=== PATIENT | female | born 1995 | race Caucasian/White ===

== ENCOUNTER 2020-07-24 23:33 | Emergency (ER) | payer MEDICAID, SELFPAY ==
[2020-07-24 23:41] VITALS: BP 98/79; PULSE 105; RESP 16; TEMP 36.8; O2SAT 100; BMI 26.5
--- NOTE | 2020-07-24 23:59 | ED.FEMALEGU ---
HPI - Female Genitourinary General Chief complaint: Urogenital-Female Stated complaint: ?UTI Time Seen by Provider: 07/24/20 23:59 Source: patient Mode of arrival: ambulatory Limitations: no limitations History of Present Illness HPI Narrative: 25-year-old female came in for evaluation of dysuria and suprapubic pain. Symptoms started since yesterday, no fever or chills, no upper abdominal pain or flank pain, no nausea or vomiting. Pain is burning sensation in the vaginal/suprapubic area mostly with urination, no vaginal discharge, patient is sexually active with 1 partner with low risk for STD. Related Data Previous Rx's Medication Instructions Recorded levofloxacin 750 mg PO DAILY #10 tab 07/25/20 phenazopyridine [Pyridium] 200 mg PO TID #6 tab 07/25/20 Allergies Allergy/AdvReac Type Severity Reaction Status Date / Time promethazine AdvReac Unknown Palpitation Verified 07/24/20 23:39 s From PHENERGAN Allergy Unknown ANXIETY Uncoded 11/12/19 16:58 Review of Systems Review of Systems: All other systems are reviewed and are negative Constitutional: Reports as per HPI and Reports no additional constitutional complaints Eyes: Reports as per HPI and Reports no additional eye complaints Reports system reviewed and no additional complaints, except as documented Cardiovascular: Reports as per HPI and Reports no additional cardiovascular complaints Respiratory: Reports as per HPI and Reports no additional respiratory complaints Gastrointestinal: Reports as per HPI and Reports no additional gastrointestinal complaints Genitourinary: Reports no additional female genitourinary complaints Musculoskeletal: Reports no additional musculoskeletal complaints Skin/Breast: Reports system reviewed and no additional complaints, except as docu Psychiatric: Reports no additional psychiatric complaints Endocrine: Reports no additional endocrine complaints Hematologic/Lymphatic: Reports no additional hematologic/lymphatic complaints Allergic/Immunologic: Reports no additional allergic/immunologic complaints Reports system reviewed and no additional complaints, except as documented and Reports Abnormal speech present [facility] Past Medical History Medical History Asthma Social History Social History Alcohol intake: never Patient Tobacco Use Status: Never used Tobacco Use of substances other than those prescribed or required for medical reasons: No Advance Directives: No Patient : No Physical Exam Vital Signs: Vital Signs: Last Vital Signs Temp 98.2 F 05/30/21 23:41 Pulse 105 H 07/24/20 23:41 Resp 16 07/24/20 23:41 BP 98/79 07/24/20 23:41 Pulse Ox 100 07/24/20 23:41 Body Mass Index 26.5 Vital signs have been reviewed as appeared to be correct. Blood pressure normal. Heart rate elevated. Respiration rate normal. Temperature normal. Oxygen saturation normal. Appearance: Alert. Oriented X3. No acute distress. Head: Normal external exam. Normocephalic. Atraumatic. No Heard signs noted. No raccoon eyes noted Eyes: PERRLA. EOMI. Conjunctiva and sclera normal. Eyelids normal. ENT: TM's Normal. Pharynx normal. Uvula midline. Moist mucous membranes. No trismus noted. No drooling noted. No muffled voice noted. Neck: Normal inspection. Neck supple. FROM. No adenopathy. Thyroid Normal. No meningeal signs. No neck mass noted. CVS: Normal heart rate and rhythm. Heart sound normal. No murmurs noted. Pulses normal throughout. Respiratory: No respiratory distress. Painless inspiration. Breath sounds normal. No wheezes/rales/rhonchi noted. Chest nontender. No accessory muscle usage noted or decreased air movement noted. Abdomen: Soft, mild suprapubic tenderness, no rebound tenderness, no guarding.. Bowel sounds normal in all 4 quadrants. No distention noted. No organomegaly noted. No visible injury noted. Pelvic exam: Physical exam was done in the presence of female integration architect RN,Irene Pinto, normal external genitalia inspection, no rash, no lesions, no discharge, no discharge, no adnexal mass or tenderness. Mild CMT. Back: No CVA tenderness. Full range of motion noted. Skin: Skin warm and dry. Normal skin color. Normal skin turgor. No rashes/lesions/lacerations noted. Extremities: No lower extremity edema. Extremities exhibit normal range of motion. Extremities nontender. Neuro: Oriented X 3. No motor deficit. No sensory deficit. Reflexes normal. Course Course Course Narrative: Assessment and plan. 25-year-old female came in with suprapubic pain and dysuria, physical exam and UA finding are consistent with acute cystitis. Start the patient on Levaquin/Pyridium/encouraged to drink plenty of fluids. As discussed with the patient to follow-up with PCP if symptoms still persist patient may need to be evaluated by urologist in the future. MDM - Female Genitourinary Lab Data Attestation: I reviewed the patient's lab results. Labs: Lab Results 07/24/20 07/24/20 Range/Units 23:46 23:49 Urine Color PINK Urine Appearance HAZY Urine pH 6.0 (5.0-8.0) Ur Specific [place] <= 1.005 (1.005-1.025) Urine Protein 1+ H (NEG-TRACE) MG/DL Urine Glucose (UA) NEG (NEG) MG/DL Urine Ketones NEG (NEG) MG/DL Urine Blood 3+ H (NEG) Urine Nitrite NEG (NEG) Ur Leukocyte Esterase 2+ H (NEG) Urine RBC 15-29 H (0) /HPF Urine WBC 10-14 H (0-4) /HPF Ur Squamous Epith Cells 1+ /LPF Urine Bacteria 1+ /LPF Urine Mucus 1+ /LPF Urine Test NEGATIVE (NEGATIVE) Discharge Plan Discharge Clinical Impression: Urinary tract infection Qualifiers: Urinary tract infection type: acute cystitis Hematuria presence: with hematuria Qualified Code(s): N30.01 - Acute cystitis with hematuria Patient Disposition: Home, Self-Care Instructions: Urinary Tract Infection in Women (ED) Additional Instructions: Drink plenty of fluid, follow-up with your PCP, if symptoms persist see a urologist as an outpatient. Prescriptions: New levofloxacin 750 mg tablet 750 mg PO DAILY Qty: 10 RF: 0 phenazopyridine [Pyridium] 200 mg tablet 200 mg PO TID Qty: 6 RF: 0 Referrals: Warren Patel MD [Physician] - 2 days
[2020-07-25 00:04] LABS: Glucose Urine UA NEG (NEG); Leukocyte Esterase Urine 2+ (NEG); Nitrite Urine NEG (NEG); Specific Gravity - Urine <= 1.005 (1.005-1.025); UACC Culture Trigger YES; Urine Blood 3+ (NEG); Urine Ketones NEG (NEG); Urine Protein 1+ MG/DL (NEG-TRACE)
[2020-07-25 00:07] LABS: Appearance Urine HAZY; Color Urine PINK
[2020-07-25 00:14] LABS: Bacteria Urine 1+ /LPF; Mucus Urine 1+ /LPF; Squamous Epithelial Cell Urine 1+ /LPF; UACC CULT YES
[2020-07-25 00:14] LABS: UPreg QC Valid YES; Urine Pregnancy NEGATIVE (NEGATIVE)
[2020-07-25] MEDS: Ibuprofen 600 MG TABLET PO (00:56)
[2020-07-25] MEDS: Phenazopyridine HCL 200 MG TABLET PO (00:56)
[2020-07-25] MEDS: levoFLOXacin 750 MG TABLET PO (00:56)
== END 2020-07-25 02:04 | disposition home or self-care (01) ==
PROVIDERS: Emergency Provider Emergency Medicine
DX: N30.01 Acute cystitis with hematuria (principal); J45.909 Unspecified asthma, uncomplicated
CPT/HCPCS: 81001; 81025; 87086; 99283; 99284

== ENCOUNTER 2020-07-25 09:32 | Emergency (ER) | payer MEDICAID, SELFPAY ==
--- NOTE | ~2020-07-25 | XR_ITS ---
EXAMINATION: XR CHEST CLINICAL INFORMATION: Cough. COMPARISON: None TECHNIQUE: Frontal view of the chest was obtained. FINDINGS: No significant abnormality is noted involving the heart, lungs, mediastinum, bony thorax or soft tissues. XR/XR chest 1V IMPRESSION: Unremarkable chest examination.
[2020-07-25 09:44] VITALS: BP 115/72; PULSE 106; RESP 17; TEMP 36.4; O2SAT 100; BMI 26.5
--- NOTE | 2020-07-25 10:56 | ED.GENADULT ---
HPI - General Adult General Chief complaint: General Medical Stated complaint: VOMITING Time Seen by Provider: 07/25/20 10:54 Source: patient Mode of arrival: ambulatory Limitations: no limitations History of Present Illness HPI narrative: Patient presents to the ED for coughing, headache, and body aches. Patient was recently treated for UTI yesterday. Patient states symptoms started after she was discharged. Patient states she has been around her friends who have been positive for COVID. Related Data Previous Rx's Medication Instructions Recorded levofloxacin 750 mg PO DAILY #10 tab 07/25/20 phenazopyridine [Pyridium] 200 mg PO TID #6 tab 07/25/20 Allergies Allergy/AdvReac Type Severity Reaction Status Date / Time promethazine AdvReac Unknown Palpitation Verified 07/24/20 23:39 s From PHENERGAN Allergy Unknown ANXIETY Uncoded 11/12/19 16:58 Review of Systems Review of Systems: Yes all other systems are reviewed and are negative Constitutional: Constitutional: Reports as per HPI, Reports no additional constitutional complaints, Reports body ache(s), Reports chills, Reports fatigue and Reports headache(s) Eyes: Eyes: Reports as per HPI and Reports no additional eye complaints ENT: Reports headache(s) Cardiovascular: Cardiovascular: Reports as per HPI and Reports no additional cardiovascular complaints Respiratory: Respiratory: Reports as per HPI and Reports no additional respiratory complaints Gastrointestinal: Gastrointestinal: Reports as per HPI and Reports no additional gastrointestinal complaints Genitourinary: Genitourinary: Reports no additional female genitourinary complaints and Reports as per HPI Musculoskeletal: Musculoskeletal: Reports no additional musculoskeletal complaints and Reports as per HPI Neurologic: Reports system reviewed and no additional complaints, except as documented, Reports as per HPI and Reports headache(s) Psychiatric: Psychiatric: Reports no additional psychiatric complaints and Reports as per HPI Endocrine: Endocrine: Reports fatigue PMF Past Medical History Medical History Asthma Social History Social History Alcohol intake: never Patient Tobacco Use Status: Never used Tobacco Advance Directives: Yes Advance Directives Information Provided: Yes Advance Directives on File: No Patient : No Physical Exam Vital Signs: Vital Signs: Last Vital Signs Temp 97.6 F 07/25/20 09:44 Pulse 106 H 07/25/20 09:44 Resp 17 07/25/20 09:44 BP 115/72 07/25/20 09:44 Pulse Ox 100 07/25/20 09:44 Body Mass Index 26.5 Const: General: cooperative, healthy appearing, comfortable, no acute distress, well developed, alert, awake and Physically active Orientation/consciousness: patient oriented x3 HENMT: Head: Yes normal to inspection, Yes No palpable skull fracture present, Yes normocephalic and Yes atraumatic Eyes: General: appearance normal, both eyes and all related structures Neck: Neck: Yes normal visual inspection, Yes full ROM, Yes no lymphadenopathy, Yes no meningeal signs, Yes trachea midline, Yes supple and No tender Chest: Chest palpation & inspection: normal inspection of the chest and normal palpation of entire chest wall Resp: Effort & Inspection: normal respiratory effort and able to speak in complete sentences Auscultation: clear to auscultation bilaterally Cardio: Jugular venous distension: no JVD Heart sounds: S1 normal heart sound present and S2 normal heart sound present GI: Inspection: Yes normal to inspection and No abdominal wall ecchymosis Palpation (GI): Soft to palpation, not firm, nontender, no guarding and not rigid : General: No CVA tenderness and Yes no CVA tenderness Back/Spine/Pelvis: Back: no CVA tenderness, No CVA tenderness and No back tenderness Skin: General skin exam: no rashes or lesions noted and elasticity normal Neuro: General: patient oriented x3, gait normal, no meningeal signs and CN's II-XI intact bilaterally Cranial nerves: Yes CN's II-XII intact bilaterally Extrem: Other: Negative for any lower extremities swelling, pitting edema,or calf tenderness General: Yes normal to inspection and Yes full ROM Psych: Appearance: grossly normal, well kempt and not disheveled Course Course Course Narrative: Will do labs, chest x-ray, COVID swab, repeat UA. Reevaluation(s) Reevaluation #1: Chest x-ray negative for pneumonia. COVID swab came back negative. Rest of labs are normal. UA no longer shows UTI. History physical exam indicate viral syndrome. Patient informed COVID swabl came back negative and because she started having symptoms yesterday and recently exposed to someone with COVID if symptoms worsen she should get retested is 7 to hours or self-quarantine. Patient informs she might be a false negative. Medical Decision Making MDM Narrative Medical decision making narrative: Viral syndrome Lab Data Result diagrams: 07/25/20 11:35 07/25/20 11:34 Labs: Lab Results 07/25/20 07/25/20 07/25/20 Range/Units 11:34 11:34 11:35 WBC 8.6 (4.8-10.8) X10*3/uL RBC 4.55 (4.20-5.50) X10*6/uL Hgb 12.5 (12.0-16.0) g/dl Hct 38.1 (37-47) % MCV 83.7 (80-98) fL MCH 27.5 (27.0-33.0) pg MCHC 32.8 (31.0-35.0) g/dl RDW 12.6 (11.0-16.0) % Plt Count 351 (160-400) X10*3/uL MPV 8.9 L (9.4-12.3) fL Immature Gran % (Auto) 0.2 (0.0-0.4) % Neut % (Auto) 76.8 H (45-73) % Lymph % (Auto) 16.3 L (20-40) % [place] % (Auto) 6.3 (2-11) % Eos % (Auto) 0.1 (0-4) % Baso % (Auto) 0.3 (0-2) % Lymph # (Auto) 1.4 (1.2-4.9) X10*3/uL [place] # (Auto) 0.5 (0.1-1.2) X10*3/uL Eos # (Auto) 0.0 (0.0-0.4) X10*3/uL Baso # (Auto) 0.0 (0.0-0.2) X10*3/uL Abs Immat Gran (auto) 0.02 (0.00-0.03) X10*3/uL Absolute Neuts (auto) 6.6 (2.0-8.3) X10*3/uL Absolute Nucleated RBC 0.000 (0.0-0.012) X10*3/uL Nucleated RBC % (auto) 0.0 (0.0-0.2) /100WBC PT 13.0 (10.8-13.0) SEC INR 1.1 (0.9-1.1) APTT 32.8 (24.1-38.0) SEC Sodium 141 (135-145) mmol/L Potassium 3.8 (3.3-5.1) mmol/L Chloride 106 (96-108) mmol/L Carbon Dioxide 24 (22-29) mmol/L Anion Gap 15 (12-20) BUN 6 L (9-16) mg/dL Creatinine 0.66 (0.5-1.4) mg/dL Estim Creat Clear Calc 114.9 Estimated GFR > 60 Random Glucose 93 (60-115) mg/dL Calcium 9.1 (8.4-10.2) mg/dL Total Bilirubin 0.8 (0.0-1.0) mg/dL Direct Bilirubin 0.3 (0.0-0.5) mg/dL AST 14 (5-31) U/L ALT 11 (0-31) U/L Alkaline Phosphatase 74 (39-117) U/L Total Protein 7.1 (6.5-8.0) g/dL Albumin 4.2 (3.5-5.0) g/dL Lipase 12 (8-78) U/L Urine Color Urine Appearance Urine pH (5.0-8.0) Ur Specific [place] (1.005-1.025) Urine Protein (NEG-TRACE) MG/DL Urine Glucose (UA) (NEG) MG/DL Urine Ketones (NEG) MG/DL Urine Blood (NEG) Urine Nitrite (NEG) Ur Leukocyte Esterase (NEG) Urine RBC (0) /HPF Urine WBC (0-4) /HPF Ur Squamous Epith Cells /LPF Urine Bacteria /LPF Urine Test (NEGATIVE) Coronavirus (PCR) (Negative) Influenza Type A (PCR) (Negative) Influenza Type B (PCR) (Negative) RSV RNA Qual (PCR) (Negative) 07/25/20 07/25/20 07/25/20 Range/Units 11:51 11:51 11:52 WBC (4.8-10.8) X10*3/uL RBC (4.20-5.50) X10*6/uL Hgb (12.0-16.0) g/dl Hct (37-47) % MCV (80-98) fL MCH (27.0-33.0) pg MCHC (31.0-35.0) g/dl RDW (11.0-16.0) % Plt Count (160-400) X10*3/uL MPV (9.4-12.3) fL Immature Gran % (Auto) (0.0-0.4) % Neut % (Auto) (45-73) % Lymph % (Auto) (20-40) % [place] % (Auto) (2-11) % Eos % (Auto) (0-4) % Baso % (Auto) (0-2) % Lymph # (Auto) (1.2-4.9) X10*3/uL [place] # (Auto) (0.1-1.2) X10*3/uL Eos # (Auto) (0.0-0.4) X10*3/uL Baso # (Auto) (0.0-0.2) X10*3/uL Abs Immat Gran (auto) (0.00-0.03) X10*3/uL Absolute Neuts (auto) (2.0-8.3) X10*3/uL Absolute Nucleated RBC (0.0-0.012) X10*3/uL Nucleated RBC % (auto) (0.0-0.2) /100WBC PT (10.8-13.0) SEC INR (0.9-1.1) APTT (24.1-38.0) SEC Sodium (135-145) mmol/L Potassium (3.3-5.1) mmol/L Chloride (96-108) mmol/L Carbon Dioxide (22-29) mmol/L Anion Gap (12-20) BUN (9-16) mg/dL Creatinine (0.5-1.4) mg/dL Estim Creat Clear Calc Estimated GFR Random Glucose (60-115) mg/dL Calcium (8.4-10.2) mg/dL Total Bilirubin (0.0-1.0) mg/dL Direct Bilirubin (0.0-0.5) mg/dL AST (5-31) U/L ALT (0-31) U/L Alkaline Phosphatase (39-117) U/L Total Protein (6.5-8.0) g/dL Albumin (3.5-5.0) g/dL Lipase (8-78) U/L Urine Color ORANGE Urine Appearance CLEAR Urine pH 7.0 (5.0-8.0) Ur Specific [place] 1.015 (1.005-1.025) Urine Protein SEE NOTE (NEG-TRACE) MG/DL Urine Glucose (UA) SEE NOTE (NEG) MG/DL Urine Ketones NEG (NEG) MG/DL Urine Blood NEG (NEG) Urine Nitrite SEE NOTE (NEG) Ur Leukocyte Esterase SEE NOTE (NEG) Urine RBC 0-2 (0) /HPF Urine WBC 1-4 (0-4) /HPF Ur Squamous Epith Cells 3+ /LPF Urine Bacteria 1+ /LPF Urine Test NEGATIVE (NEGATIVE) Coronavirus (PCR) NEGATIVE (Negative) Influenza Type A (PCR) NEGATIVE (Negative) Influenza Type B (PCR) NEGATIVE (Negative) RSV RNA Qual (PCR) NEGATIVE (Negative) Discharge Plan Discharge Clinical Impression: Acute viral syndrome Patient Disposition: Home, Self-Care Instructions: Viral Syndrome (ED) Additional Instructions: Return to the ED for shortness of breath, coughing up blood, calf pain, swelling of lower extremities, fever, chills, crushing chest pain, abdominal pain, dysuria, hematuria, flank pain, any other concerning symptoms. Youre COVID swab came back negative. Symptoms worsen recommend self quarantine or retesting in 72 hours. Chest x-ray came back negative for pneumonia. Blood work came back normal. UA came back normal. Flu swab came back negative. Prescriptions: No Action levofloxacin 750 mg tablet 750 mg PO DAILY Qty: 10 RF: 0 phenazopyridine [Pyridium] 200 mg tablet 200 mg PO TID Qty: 6 RF: 0 Stand Alone Forms: Work/School Release Interventions: ED Discharge Assessment Last Done: 07/25/20 14:13 Discharge Date/Time: 07/25/20 14:14 Print Language: [place]
[2020-07-25 11:38] LABS: MANUAL DIFF FLAG NO
[2020-07-25 11:40] LABS: Basophils Percent Auto 0.3 % (0-2); Eosinophils Percent Auto 0.1 % (0-4); Hematocrit 38.1 % (37-47); Hemoglobin 12.5 g/dl (12.0-16.0); Imm Gran Abs Auto 0.02 X10*3/uL (0.00-0.03); Imm Gran Pct Auto 0.2 % (0.0-0.4); Lymphocytes Absolute Auto 1.4 X10*3/uL (1.2-4.9); Lymphocytes Percent Auto 16.3 % (20-40); Mean Corpuscular HGB Conc 32.8 g/dl (31.0-35.0); Mean Corpuscular Hemoglobin 27.5 pg (27.0-33.0); Mean Corpuscular Volume 83.7 fL (80-98); Mean Platelet Volume 8.9 fL (9.4-12.3); Monocytes Absolute Auto 0.5 X10*3/uL (0.1-1.2); Monocytes Percent Auto 6.3 % (2-11); Neutrophils Absolute Auto 6.6 X10*3/uL (2.0-8.3); Neutrophils Percent Auto 76.8 % (45-73); Platelet Count 351 X10*3/uL (160-400); Red Blood Count 4.55 X10*6/uL (4.20-5.50); Red Cell Distribution Width 12.6 % (11.0-16.0); White Blood Count 8.6 X10*3/uL (4.8-10.8)
[2020-07-25 11:46] LABS: INTERNATIONAL NORM RATIO 1.1 (0.9-1.1)
[2020-07-25 11:49] LABS: Partial Thromboplastin Time 32.8 SEC (24.1-38.0)
[2020-07-25 12:02] LABS: UPreg QC Valid YES; Urine Pregnancy NEGATIVE (NEGATIVE)
[2020-07-25 12:07] LABS: Specific Gravity - Urine 1.015 (1.005-1.025); Urine Blood NEG (NEG); Urine Ketones NEG (NEG)
[2020-07-25 12:08] LABS: Alanine Aminotransferase 11 U/L (0-31); Albumin Level 4.2 g/dL (3.5-5.0); Alkaline Phosphatase 74 U/L (39-117); Anion Gap 15 (12-20); Aspartate Amino Transferase 14 U/L (5-31); Bilirubin Direct 0.3 mg/dL (0.0-0.5); Bilirubin Total 0.8 mg/dL (0.0-1.0); Blood Urea Nitrogen 6 mg/dL (9-16); Calcium 9.1 mg/dL (8.4-10.2); Carbon Dioxide 24 mmol/L (22-29); Chloride 106 mmol/L (96-108); Creatinine Clr Calc Pharmacy 114.9; Estimated Glomerular Filt Rate > 60; Glucose Random 93 mg/dL (60-115); Lipase 12 U/L (8-78); Potassium 3.8 mmol/L (3.3-5.1); Sodium 141 mmol/L (135-145); Total Protein 7.1 g/dL (6.5-8.0)
[2020-07-25 12:09] LABS: Appearance Urine CLEAR; Color Urine ORANGE
[2020-07-25 12:11] LABS: Bacteria Urine 1+ /LPF; RBC Urine 0-2 /HPF (0); Squamous Epithelial Cell Urine 3+ /LPF
[2020-07-25 12:53] LABS: Influenza A PCR NEGATIVE (Negative); Influenza B PCR NEGATIVE (Negative); Resp Syncy Virus RNA Qual PCR NEGATIVE (Negative); SARS COV2 PCR INHOUSE NEGATIVE (Negative)
== END 2020-07-25 14:14 | disposition home or self-care (01) ==
PROVIDERS: Physician Assistant; Emergency Provider Emergency Medicine Emergency Medical Services; PCP Pediatrics
DX: B34.9 Viral infection, unspecified (principal); Z20.822 Contact with and (suspected) exposure to COVID-19; R51.9 Headache, unspecified
CPT/HCPCS: 0241U; 36415; 71045; 80053; 80076; 81001; 81003; 81025; 82248; 83690; 85025; 85610; 85730; 87086; 99283

== ENCOUNTER 2020-11-03 12:19 | Outpatient (REF) | payer MEDICAID, SELFPAY ==
--- NOTE | ~2020-11-03 | XR_ITS ---
EXAMINATION: XR CHEST CLINICAL INFORMATION: Asthma. Rule out pneumonia. COMPARISON: Previous chest x-ray most recent June 2020 TECHNIQUE: 2 views of the chest were obtained. FINDINGS: No significant abnormality is noted involving the heart, lungs, mediastinum, bony thorax or soft tissues. XR/XR chest 2V IMPRESSION: Unremarkable examination.
== END 2020-11-03 12:20 | disposition home or self-care (01) ==
LOC: HO.XRAY 12:19
PROVIDERS: Visit Provider Emergency Medicine
DX: U07.1 COVID-19 (principal)
CPT/HCPCS: 71046

== ENCOUNTER 2022-05-22 14:58 | Outpatient (REF) | payer MEDICAID, SELFPAY ==
--- NOTE | ~2022-05-22 | CT_ITS ---
EXAMINATION: CT HEAD WITHOUT CONTRAST CLINICAL INFORMATION: Dizziness. COMPARISON: Head CT dated 07/01/2014. TECHNIQUE: Contiguous axial imaging was performed from the skullbase to vertex without intravenous administration of contrast. This CT examination was performed using dose optimization techniques as appropriate, variously including the following: *Automated exposure control *Adjustment of mA and/or kV according to patient size (this includes techniques or standardized protocols for targeted exams where dose is matched to indication/reason for exam; i.e. extremities or head) *Use of iterative reconstruction technique DLP: 602 mGy-cm. FINDINGS: There is no evidence of acute intracranial hemorrhage or territorial infarction. No abnormal mass effect or midline shift is seen. Patel to white matter differentiation is well preserved. No extra-axial fluid collections are identified. The ventricles are normal in size. There is no abnormal attenuation within the brain parenchyma. The osseous structures and soft tissues are normal. The mastoid air cells and visualized portions of the paranasal sinuses are well aerated. CT/CT head/brain wo IV con IMPRESSION: No acute intracranial pathology. Normal CT scan of the head.
== END 2022-05-22 14:59 | disposition home or self-care (01) ==
LOC: HO.CT 14:58
PROVIDERS: PCP Pediatrics; Visit Provider Pediatrics
DX: R55 Syncope and collapse (principal)
CPT/HCPCS: 70450

== ENCOUNTER 2023-04-16 11:48 | Outpatient (REF) | payer MEDICAID, SELFPAY ==
[2023-04-16 14:49] LABS: MANUAL DIFF FLAG NO
[2023-04-16 14:53] LABS: Basophils Percent Auto 0.6 % (0-2); Eosinophils Absolute Auto 0.1 X10*3/uL (0.0-0.4); Eosinophils Percent Auto 1.3 % (0-4); Hemoglobin 11.3 g/dl (12.0-16.0); Imm Gran Abs Auto 0.03 X10*3/uL (0.00-0.03); Imm Gran Pct Auto 0.4 % (0.0-0.4); Lymphocytes Percent Auto 44.9 % (20-40); Mean Corpuscular HGB Conc 30.5 g/dl (31.0-35.0); Mean Corpuscular Volume 78.7 fL (80.0-98.0); Mean Platelet Volume 9.2 fL (9.4-12.3); Monocytes Absolute Auto 0.7 X10*3/uL (0.1-1.2); Monocytes Percent Auto 9.9 % (2-11); Neutrophils Absolute Auto 2.9 x10*3/uL (2.0-8.3); Neutrophils Percent Auto 42.9 % (45-73); Platelet Count 418 X10*3/uL (160-400); Red Cell Distribution Width 14.7 % (11.0-16.0); White Blood Count 6.7 X10*3/uL (4.8-10.8)
[2023-04-16 15:04] LABS: Estimated Average Glucose 91 mg/dL; Hemoglobin A1c % 4.8 % (<6.0)
[2023-04-16 15:12] LABS: Appearance Urine Clear; Color Urine Yellow; Glucose Urine UA Negative (Negative); Leukocyte Esterase Urine Negative (Negative); Nitrite Urine Negative (Negative); Specific Gravity - Urine 1.025 (1.005-1.025); Urine Blood Negative (Negative); Urine Ketones Negative (Negative); Urine Protein Negative (Neg-Trace)
[2023-04-16 15:17] LABS: Bacteria Urine None Seen (None Seen); Hyaline Casts Urine 0-2 /LPF (0-2); RBC Urine 0-2 /HPF (0-2); WBC Urine 0-5 /HPF (0-5)
[2023-04-16 15:21] LABS: Alanine Aminotransferase 11 U/L (0-31); Albumin Level 4.3 g/dL (3.5-5.0); Alkaline Phosphatase 65 U/L (39-117); Anion Gap 13 (12-20); Aspartate Amino Transferase 14 U/L (5-31); Bilirubin Direct 0.2 mg/dL (0.0-0.5); Bilirubin Total 0.4 mg/dL (0.0-1.0); Blood Urea Nitrogen 10 mg/dL (9-16); Calcium 9.6 mg/dL (8.4-10.2); Carbon Dioxide 24 mmol/L (22-29); Chloride 109 mmol/L (96-108); Estimated Glomerular Filt Rate > 60; Glucose Random 69 mg/dL (60-115); Potassium 3.5 mmol/L (3.3-5.1); Sodium 142 mmol/L (135-145); Total Protein 7.7 g/dL (6.5-8.0)
[2023-04-16 15:41] LABS: TSH reflex Free T4 2.67 uIU/mL (0.32-4.0); Vitamin D 25-OH Total 14.2 ng/mL (>30)
== END 2023-04-16 11:49 | disposition home or self-care (01) ==
LOC: HO.CHCLDS 11:48
PROVIDERS: Visit Provider Pediatrics
DX: R63.5 Abnormal weight gain (principal); E55.9 Vitamin D deficiency, unspecified; N94.6 Dysmenorrhea, unspecified
CPT/HCPCS: 36415; 80048; 80076; 81001; 82306; 83036; 84443; 85025